=== PATIENT | male | born 1990 | race Caucasian/White ===

== ENCOUNTER 2017-12-29 20:50 | Emergency (ER) | payer BC ==
[~2017-12-29 20:50] MED LIST: EMTRICITABINE/TENOFOVIR 200MG/300MG TAB PO SCH; RALTEGRAVIR 400 MG TAB PO SCH
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
[2017-12-29 21:10] VITALS: BP 143/81
[2017-12-29] MEDS ORDERED: ACETAMINOPHEN 500 MG TAB PO ONE (21:24)
[2017-12-29] MEDS ORDERED: AZITHROMYCIN 250 MG TAB PO ONE (21:24)
[2017-12-29] MEDS ORDERED: ONDANSETRON DISINTEGRATING 4 MG TAB PO ONE (21:24)
[2017-12-29] MEDS ORDERED: IBUPROFEN 600 MG TAB PO ONE (21:24)
[2017-12-29] MEDS ORDERED: EMTRICITABINE/TENOFOVIR 200MG/300MG TAB PO ONE (22:49)
[2017-12-29] MEDS ORDERED: RALTEGRAVIR 400 MG TAB PO ONE (22:49)
[2017-12-29 23:29] LABS: PLATELET COUNT 270 10^3/uL (150-400)
== END 2017-12-30 00:10 | disposition home or self-care (01) ==
LOC: EEVIPCON 20:50
DX: T74.21XA Adult sexual abuse, confirmed, initial encounter (principal)
CPT/HCPCS: J0696